=== PATIENT | male | born 1960 | race Caucasian/White ===

== ENCOUNTER 2023-08-25 08:45 | Emergency (ER) | payer OTHER ==
[2023-08-25] MEDS ORDERED: Lidocaine 1% (PF) 30 ML VIAL ONE (09:06)
[2023-08-25] MEDS ORDERED: Boostrix 0.5 ML (Tdap) VIAL (>/=7 yrs of age) ONE (09:23)
[2023-08-25] MEDS ORDERED: Bacitracin 1 PK ONE (09:33)
== END 2023-08-25 09:42 | disposition home or self-care (01) ==
LOC: BURERS 08:45
DX: S60.351A Superficial foreign body of right thumb, initial encounter (principal); F17.220 Nicotine dependence, chewing tobacco, uncomplicated; W45.8XXA Other foreign body or object entering through skin, initial encounter; Z23 Encounter for immunization
CPT/HCPCS: 10120; 90471; 90715; J2001